=== PATIENT | female | born 1985 ===

== ENCOUNTER 2020-03-07 10:40 | Inpatient (IN) | payer BC ==
[2020-03-07] MEDS ORDERED: Methylergonovine 0.2 MG/1 ML Amp IM PRN (11:02)
[2020-03-07] MEDS ORDERED: Sodium Chloride 0.9% 10 ML SDV IV PRN (11:02)
[2020-03-07] MEDS ORDERED: Ondansetron 4 MG/2 ML SDV IVPUSH PRN (11:02)
[2020-03-07] MEDS ORDERED: Lidocaine 1% 50 ML MDV INJECT PRN (11:02)
[2020-03-07] MEDS ORDERED: Sodium Chloride 0.9% 2.5 ML Syringe FLUSH PRN (11:02)
[2020-03-07] MEDS ORDERED: Carboprost Tromethamine 250 MCG/1 ML Amp IM PRN (11:02)
[2020-03-07] MEDS ORDERED: Tranexamic Acid 1,000 MG in Sodium Chloride 0.9% 100 ML IV PRN (11:02)
[2020-03-07] MEDS ORDERED: Nalbuphine 10 MG/1 ML Vial IVPUSH PRN (11:02)
[2020-03-07] MEDS ORDERED: Butorphanol 1 MG/ML SDV IVPUSH PRN (11:02)
[2020-03-07] MEDS ORDERED: Misoprostol 200 MCG Tab PO PRN (11:02)
[2020-03-07] MEDS ORDERED: Sodium Chloride 0.9% 10 ML Syringe FLUSH PRN (11:02)
[2020-03-07] MEDS ORDERED: Water For Irrigation,Sterile 1,000 ML Container IRR PRN (11:02)
[2020-03-07] MEDS ORDERED: Oxytocin/0.9 % Sodium Chloride 30 UNIT/500 ML BAG IV SCH ×2 (11:15→14:45)
[2020-03-07] MEDS: Lactated Ringers 1,000 ML IV SCH ×2 (11:55→13:15)
[2020-03-07] MEDS ORDERED: Ropivacaine HCl/PF 100 ML ONE (12:11)
[2020-03-07] MEDS ORDERED: fentaNYL 100 MCG/2 ML SDV ONE (12:11)
--- NOTE | 2020-03-07 13:04 | PCM.LDHP ---
L&D History of Present Illness - General Date of Service: 03/07/20 Admit Problem/Dx: Patient Status Order with Admit Dx/Problem 03/07/20 11:02 Patient Status [ADT] Routine Admission Diagnosis/Problem Admission Diagnosis/Problem 03/07/20 12:58 Latisha is a 34 yo at 40.4 weeks gestation (EDD03/02/2020) that presents today with C/O contractions since DINO visit this am at 8:15. 2-3 cm in office. /-2 upon arrival. FHR Cat I. Contractions every 4 min lasting 60-80 seconds. Patient denies LOF, vaginal bleeding. Reports movement. Desires epidural analgesia. 03/07/20 13:01 Source of Information: Patient History Limitations: Reports: No Limitations - Related Data Allergies/Adverse Reactions: Allergies Allergy/AdvReac Type Severity Reaction Status Date / Time No Known Allergies Allergy Verified 04/15/18 12:42 Home Medications: Home Meds . 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: : 3 Para: 2 LMP (Approximate): Musculoskeletal History: Reports: None Neurological History: Reports: None Psychiatric History: Reports: None Endocrine/Metabolic History: Reports: None Hematologic History: Reports: None Immunologic History: Reports: None Dermatologic History: Reports: None - Infectious Disease History Infectious Disease History: Reports: None Social & Family History - Family History HEENT: Reports: Glaucoma Neurological: Reports: Parkinson's Oncologic: Reports: Bladder - Tobacco Use Smoking Status *Q: Never Smoker - Caffeine Use Caffeine Use: Reports: None - Alcohol Use Alcohol Use History: No H&P Review of Systems - Review of Systems: Review Of Systems: Comprehensive ROS is negative, except as noted in HPI. General: Reports: No Symptoms HEENT: Reports: No Symptoms Pulmonary: Reports: No Symptoms Cardiovascular: Reports: No Symptoms Gastrointestinal: Reports: No Symptoms Genitourinary: Reports: No Symptoms Musculoskeletal: Reports: No Symptoms Skin: Reports: No Symptoms Psychiatric: Reports: No Symptoms Neurological: Reports: No Symptoms Hematologic/Lymphatic: Reports: No Symptoms Immunologic: Reports: No Symptoms L&D Exam - Exam Exam: See Below - Vital Signs Vital Signs: Hemodynamically stable, afebrile. Weight: 200 lb - OB Specific Fundal Height In cm: 40 Contraction Duration (sec): 60-80 Contraction Frequency (min): 4 Contraction Intensity: Strong Movement: Active Heart Tones: Present Heart Tones per Min: 130 Heart Rate (FHR) Variability: Moderate (6-25 bmp) Presentation: Vertex - Exam General: Alert, Oriented, Cooperative, Moderate Distress (Desires epidural analgesia) HEENT: Conjunctiva Clear, Hearing Intact, Mucosa Moist & [place], PERRLA Neck: Supple, Trachea Midline Lungs: Clear to Auscultation, Normal Respiratory Effort Cardiovascular: Regular Rate, Regular Rhythm GI/Abdominal Exam: Normal Bowel Sounds, Soft, Non-Tender, No Organomegaly, No Distention Rectal Exam: Deferred Genitourinary: Normal external exam, Enlarged uterus (Gravid uterus) Back Exam: Normal Inspection, Full Range of Motion Extremities: Normal Inspection, Normal Range of Motion, Non-Tender, No Pedal Edema, Normal Capillary Refill Skin: Warm, Dry, Intact Neurological: Cranial Nerves Intact, Reflexes Equal Bilateral Psychiatric: Alert, Normal Affect, Normal Mood - Patient Data Lab Results Last 24 hrs: Laboratory Results - last 24 hr 03/07/20 Range/Units 11:40 WBC 9.16 (4.0-11.0) K/uL RBC 4.18 L (4.30-5.90) M/uL Hgb 11.2 L (12.0-16.0) g/dL Hct 35.6 L (36.0-46.0) % MCV 85.2 (80.0-98.0) fL MCH 26.8 L (27.0-32.0) pg MCHC 31.5 (31.0-37.0) g/dL RDW Std Deviation 43.9 (28.0-62.0) fl RDW Coeff of Ivana 14 (11.0-15.0) % Plt Count 284 (150-400) K/uL MPV 10.00 (7.40-12.00) fL Nucleated RBC % 0.0 /100WBC Nucleated RBCs # 0 K/uL Result Diagrams: 03/07/20 11:40 - Problem List (1) Uterine contractions SNOMED Code(s): 654631969 ICD Code: [id number] - Status: Acute Priority: High Current Visit: Yes (2) 40 weeks gestation of SNOMED Code(s): 07999871 ICD Code: Z3A.40 - 40 WEEKS GESTATION OF Status: Acute Priority: High Current Visit: Yes Problem List Initiated/Reviewed/Updated: Yes Orders Last 24hrs: Active Orders 24 hr Category Date Time Status Patient Status [ADT] Routine ADT 03/07/20 11:02 Active Heart Tones [RC] CONTINUOUS Care 03/07/20 11:02 Active Non Stress Test [RC] PER UNIT ROUTINE Care 03/07/20 11:02 Active May Shower [RC] ASDIRECTED Care 03/07/20 11:02 Active Notify Provider [RC] PRN Care 03/07/20 11:02 Active Up ad Elaine [RC] ASDIRECTED Care 03/07/20 11:02 Active Vaginal Exam [RC] PRN Care 03/07/20 11:02 Active Vital Signs [RC] PER UNIT ROUTINE Care 03/07/20 11:02 Active CORONAVIRUS COVID-19 MARIO [MOLEC] Stat Lab 03/07/20 11:25 Received RPR (SYPHILIS SERO) W/ RFLX [REF] Routine Lab 03/07/20 11:40 Received TYPE AND SCREEN [BBK] Routine Lab 03/07/20 11:40 Received Butorphanol [Stadol] Med 03/07/20 11:02 Active 1 mg IVPUSH Q1H PRN Carboprost Tromethamine [Hemabate DS] Med 03/07/20 11:02 Active 250 mcg IM ASDIRECTED PRN Lactated Ringers [Ringers, Lactated] 1,000 ml Med 03/07/20 11:15 Active IV ASDIRECTED Lidocaine 1% [Xylocaine 1%] Med 03/07/20 11:02 Active 50 ml INJECT ONETIME PRN Methylergonovine [Methergine] Med 03/07/20 11:02 Active 0.2 mg IM ASDIRECTED PRN Nalbuphine [Nubain] Med 03/07/20 11:02 Active 10 mg IVPUSH Q1H PRN Ondansetron [Zofran] Med 03/07/20 11:02 Active 4 mg IVPUSH Q6H PRN Oxytocin/0.9 % Sodium Chloride [Oxytocin 30 Unit/500 ML Med 03/07/20 11:15 Active -NS] 30 unit in 500 ml IV TITRATE Sodium Chloride 0.9% [Normal Saline] Med 03/07/20 11:02 Active 10 ml IV ASDIRECTED PRN Sodium Chloride 0.9% [Saline Flush] Med 03/07/20 11:02 Active 10 ml FLUSH ASDIRECTED PRN Sodium Chloride 0.9% [Saline Flush] Med 03/07/20 11:02 Active 2.5 ml FLUSH ASDIRECTED PRN Tranexamic Acid [Cyklokapron] 1,000 mg Med 03/07/20 11:02 Active Sodium Chloride 0.9% [Normal Saline] 100 ml IV ONETIME Water For Irrigation,Sterile [Sterile Water for Med 03/07/20 11:02 Active Irrigation] 1,000 ml IRR ASDIRECTED PRN miSOPROStoL [Cytotec] Med 03/07/20 11:02 Active 200 mcg PO ONETIME PRN Scalp Electrode [WOMSER] Per Unit Routine Oth 03/07/20 11:02 Ordered Peripheral IV Insertion Adult [OM.PC] Routine Oth 03/07/20 11:02 Ordered Resuscitation Status Routine Resus Stat 03/07/20 11:02 Ordered Medication Orders Butorphanol Tartrate (Stadol) 1 mg IVPUSH Q1H PRN PRN Reason: Pain Carboprost Tromethamine (Hemabate Ds) 250 mcg IM ASDIRECTED PRN PRN Reason: Post Hemorrhage Oxytocin/Sodium Chloride (Oxytocin 30 Unit/500 Ml-Ns) 30 unit in 500 mls @ 999 mls/hr IV TITRATE [facility] Tranexamic Acid 1,000 mg/ (Sodium Chloride) 110 mls @ 660 mls/hr IV ONETIME PRN PRN Reason: Bleeding Lactated Ringer's (Ringers, Lactated) 1,000 mls @ 150 mls/hr IV ASDIRECTED PAULINO Last Admin: 03/07/20 11:55 Dose: 150 mls/hr Documented by: MINI Lidocaine HCl (Xylocaine 1%) 50 ml INJECT ONETIME PRN PRN Reason: Laceration repair Methylergonovine Maleate (Methergine) 0.2 mg IM ASDIRECTED PRN PRN Reason: Post Hemorrhage Misoprostol (Cytotec) 200 mcg PO ONETIME PRN PRN Reason: Post Hemorrhage Nalbuphine HCl (Nubain) 10 mg IVPUSH Q1H PRN PRN Reason: Pain (severe 7-10) Ondansetron HCl (Zofran) 4 mg IVPUSH Q6H PRN PRN Reason: Nausea/Vomiting Sodium Chloride (Saline Flush) 10 ml FLUSH ASDIRECTED PRN PRN Reason: Keep Vein Open Sodium Chloride (Saline Flush) 2.5 ml FLUSH ASDIRECTED PRN PRN Reason: Keep Vein Open Sodium Chloride (Normal Saline) 10 ml IV ASDIRECTED PRN PRN Reason: IV Use Sterile Water (Sterile Water For Irrigation) 1,000 ml IRR ASDIRECTED PRN PRN Reason: delivery Assessment/Plan Comment:: Admit for observation to L&D in anticipation of . Desires epidural and may receive at this time. COVID testing pending. Declines AROM at this time. See new orders. Dr. Rene notified and agreeable with POC.
--- NOTE | 2020-03-07 13:12 | PCM.PREANE ---
Preanesthetic Assessment - Anesthesia/Transfusion/Family Hx Anesthesia History: Prior Anesthesia Without Reaction Family History of Anesthesia Reaction: No - Physical Assessment NPO Status Date: 03/07/20 NPO Status Time: 09: Height: 1.68 m Weight: 90.718 kg ASA Class: 2 - Lab Values: Laboratory Last Values WBC 9.16 K/uL (4.0-11.0) 03/07/20 11:40 RBC 4.18 M/uL (4.30-5.90) L 03/07/20 11:40 Hgb 11.2 g/dL (12.0-16.0) L 03/07/20 11:40 Hct 35.6 % (36.0-46.0) L 03/07/20 11:40 MCV 85.2 fL (80.0-98.0) 03/07/20 11:40 MCH 26.8 pg (27.0-32.0) L 03/07/20 11:40 MCHC 31.5 g/dL (31.0-37.0) 03/07/20 11:40 RDW Std Deviation 43.9 fl (28.0-62.0) 03/07/20 11:40 RDW Coeff of Ivana 14 % (11.0-15.0) 03/07/20 11:40 Plt Count 284 K/uL (150-400) 03/07/20 11:40 MPV 10.00 fL (7.40-12.00) 03/07/20 11:40 Nucleated RBC % 0.0 /100WBC 03/07/20 11:40 Nucleated RBCs # 0 K/uL 03/07/20 11:40 - Allergies Allergies/Adverse Reactions: Allergies Allergy/AdvReac Type Severity Reaction Status Date / Time No Known Allergies Allergy Verified 04/15/18 12:42 - Acknowledgements Anesthesia Type Planned: Epidural Pt an Appropriate Candidate for the Planned Anesthesia: Yes Alternatives and Risks of Anesthesia Discussed w Pt/Guardian: Yes Pt/Guardian Understands and Agrees with Anesthesia Plan: Yes PreAnesthesia Questionnaire - Past Health History Medical/Surgical History: Denies Medical/Surgical History HEENT History: Reports: None Cardiovascular History: Reports: None Respiratory History: Reports: None Gastrointestinal History: Reports: None Genitourinary History: Reports: UTI, Recurrent 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 [No Known Home Meds] 04/15/18 [History] - CURRENT (IN HOUSE) MEDS Current Meds: Current Medications Butorphanol Tartrate (Stadol) 1 mg IVPUSH Q1H PRN PRN Reason: Pain Carboprost Tromethamine (Hemabate Ds) 250 mcg IM ASDIRECTED PRN PRN Reason: Post Hemorrhage Oxytocin/Sodium Chloride (Oxytocin 30 Unit/500 Ml-Ns) 30 unit in 500 mls @ 999 mls/hr IV TITRATE COUNTS INCLUDE 234 BEDS AT THE [facility] Tranexamic Acid 1,000 mg/ (Sodium Chloride) 110 mls @ 660 mls/hr IV ONETIME PRN PRN Reason: Bleeding Lactated Ringer's (Ringers, Lactated) 1,000 mls @ 150 mls/hr IV ASDIRECTED COUNTS INCLUDE 234 BEDS AT THE [facility] Last Admin: 03/07/20 11:55 Dose: 150 mls/hr Documented by: Lidocaine HCl (Xylocaine 1%) 50 ml INJECT ONETIME PRN PRN Reason: Laceration repair Methylergonovine Maleate (Methergine) 0.2 mg IM ASDIRECTED PRN PRN Reason: Post Hemorrhage Misoprostol (Cytotec) 200 mcg PO ONETIME PRN PRN Reason: Post Hemorrhage Nalbuphine HCl (Nubain) 10 mg IVPUSH Q1H PRN PRN Reason: Pain (severe 7-10) Ondansetron HCl (Zofran) 4 mg IVPUSH Q6H PRN PRN Reason: Nausea/Vomiting Sodium Chloride (Saline Flush) 10 ml FLUSH ASDIRECTED PRN PRN Reason: Keep Vein Open Sodium Chloride (Saline Flush) 2.5 ml FLUSH ASDIRECTED PRN PRN Reason: Keep Vein Open Sodium Chloride (Normal Saline) 10 ml IV ASDIRECTED PRN PRN Reason: IV Use Sterile Water (Sterile Water For Irrigation) 1,000 ml IRR ASDIRECTED PRN PRN Reason: delivery Discontinued Medications Fentanyl (Sublimaze) Confirm Administered Dose 100 mcg .ROUTE .STK-MED ONE Stop: 03/07/20 12:12 Ropivacaine (Naropin 0.2%) Confirm Administered Dose 100 mls @ as directed .ROUTE .ST-MED ONE Stop: 03/07/20 12:12
--- NOTE | 2020-03-07 13:17 | PCM.PRNOTE ---
- Free Text/Narrative Note: Anes NOte Patietn requests epidural for L&D. Sitting position, level L3-L4 midline appraoch. Sterile technique. Chlora[prep scrub to lumbar area. Sterile fenestrated drape applied. Epidural space easily achieved single attempt with ease using JOHN tecvhnique. JOHN at 3 cm. Cath threaded 5 cm with ease. Cath secured a t skin at 10 cm usig sterile clear adhesive dressing. 1254 Test 3 cc 1.5% lido with epi negative. 1257 load 10 cc 0.2% ropivicaine with 1 mcg cc fentanyl in slow divided doses. Pump started with 90 cc same solution, rate is 8 cc hr with 6 cc q 20 min prn bolus. Tole well Time with patient [phone] Everett Roa NET APPLICATION ARCHITECT
[2020-03-07] MEDS ORDERED: Acetaminophen 500 MG Tab PO PRN ×2 (16:47)
[2020-03-07] MEDS ORDERED: Ibuprofen 400 MG Tab PO PRN (16:47)
[2020-03-07] MEDS ORDERED: Benzocaine/Menthol 20%-0.5% Spray 78 GM Cannister TOP PRN (16:47)
[2020-03-07] MEDS ORDERED: oxyCODONE 5 MG Tab PO PRN (16:47)
[2020-03-07] MEDS ORDERED: Lanolin 100% Cream 7 GM Tube TOP PRN (16:47)
[2020-03-07] MEDS ORDERED: Docusate Sodium 100 MG Cap PO PRN (16:47)
[2020-03-07] MEDS ORDERED: Bisacodyl 10 MG Supp RECTAL PRN (16:47)
[2020-03-07] MEDS ORDERED: Witch Hazel Medicated Pads 40/Jar TOP PRN (16:47)
--- NOTE | 2020-03-07 16:54 | PCM.DEL ---
L & D Note - General Info Date of Service: 03/07/20 - Delivery Note Labor: Spontaneous, Augmented by Oxytocin Delivery Outcome: Livebirth Infant Delivery Method: Spontaneous Vaginal Delivery-Single Presentation: Vertex Nuchal Cord: None Anesthesia Type: Epidural Amniotic Fluid Description: Terminal Meconium Episiotomy Type: None Laceration: 1st Degree Suture type: Vicryl Suture size: 3-0 Placenta: Intact, Spontaneous Cord: 3 Vessels Estimated Blood Loss: 300 [place]: Suctioned, Bulb Syringe, Stimulated Score 1 min: 6 Score 5 min: 9 Second Stage Interventions: Reports: Second Nurse Assessed Progress of Descent, Second Nurse Reviewed Contraction Pattern, Second Nurse Reviewed Heart Tones, Encouragement Given, Pushing Effectively, Pushing, Pulls Own Legs Back Delivery Comments (Free Text/Narrative):: viable female; epidural for pain relief; head delivered with good pushing, shoulders and body followed easily after; terminal meconium; no nuchal; baby to mom's abdomen [id number] for assessment; cord doubly clamped, cut by research psychologist at approximately one minute; baby to warmer for further assessment; APGARs 6/9; weight: 8 lb 12 oz; placenta delivered grossly intact, altamirano, 3VC, EBL 300 mL; first degree perineal laceration repaired with 3-0 vicryl; pitocin to IVF; mom and baby left in stable condition with nurse at bedside for assessment - General Info Date of Service: 03/07/20 Admission Dx/Problem (Free Text): Patient Status Order with Admit Dx/Problem 03/07/20 11:02 Patient Status [ADT] Routine Admission Diagnosis/Problem Admission Diagnosis/Problem 03/07/20 12:58 Latisha is a 34 yo at 40.4 weeks gestation (EDD03/02/2020) that presents today with C/O contractions since DINO visit this am at 8:15. 2-3 cm in office. 4/70/-2 upon arrival. FHR Cat I. Contractions every 4 min lasting 60-80 seconds. Patient denies LOF, vaginal bleeding. Reports movement. Desires epidural analgesia. 03/07/20 13:01 Functional Status: Reports: Pain Controlled - Review of Systems General: Reports: No Symptoms HEENT: Reports: No Symptoms Pulmonary: Reports: No Symptoms Cardiovascular: Reports: No Symptoms Gastrointestinal: Reports: No Symptoms Genitourinary: Reports: No Symptoms Musculoskeletal: Reports: No Symptoms Skin: Reports: No Symptoms Neurological: Reports: No Symptoms Psychiatric: Reports: No Symptoms - Patient Data Weight - Most Recent: 200 lb Lab Results Last 24 Hours: Laboratory Results - last 24 hr 03/07/20 03/07/20 03/07/20 Range/Units 11:25 11:40 11:40 WBC 9.16 (4.0-11.0) K/uL RBC 4.18 L (4.30-5.90) M/uL Hgb 11.2 L (12.0-16.0) g/dL Hct 35.6 L (36.0-46.0) % MCV 85.2 (80.0-98.0) fL MCH 26.8 L (27.0-32.0) pg MCHC 31.5 (31.0-37.0) g/dL RDW Std Deviation 43.9 (28.0-62.0) fl RDW Coeff of Ivana 14 (11.0-15.0) % Plt Count 284 (150-400) K/uL MPV 10.00 (7.40-12.00) fL Nucleated RBC % 0.0 /100WBC Nucleated RBCs # 0 K/uL SARS-CoV-2 RNA (MARIO) NEGATIVE (NEGATIVE) Blood Type O POSITIVE Antibody Screen NEGATIVE Med Orders - Current: Current Medications Discontinued Medications Butorphanol Tartrate (Stadol) 1 mg IVPUSH Q1H PRN PRN Reason: Pain Carboprost Tromethamine (Hemabate Ds) 250 mcg IM ASDIRECTED PRN PRN Reason: Post Hemorrhage Fentanyl (Sublimaze) Confirm Administered Dose 100 mcg .ROUTE .STK-MED ONE Stop: 03/07/20 12:12 Oxytocin/Sodium Chloride (Oxytocin 30 Unit/500 Ml-Ns) 30 unit in 500 mls @ 999 mls/hr IV TITRATE PAULNIO Tranexamic Acid 1,000 mg/ (Sodium Chloride) 110 mls @ 660 mls/hr IV ONETIME PRN PRN Reason: Bleeding Lactated Ringer's (Ringers, Lactated) 1,000 mls @ 150 mls/hr IV ASDIRECTED PAULINO Last Admin: 03/07/20 13:15 Dose: 150 mls/hr Documented by: Ropivacaine (Naropin 0.2%) Confirm Administered Dose 100 mls @ as directed .ROUTE .STK-MED ONE Stop: 03/07/20 12:12 Oxytocin/Sodium Chloride (Oxytocin 30 Unit/500 Ml-Ns) 30 unit in 500 mls @ 2 mls/hr IV TITRATE PAULINO; Protocol Last Admin: 03/07/20 14:57 Dose: 2 munits/min, 2 mls/hr Documented by: Lidocaine HCl (Xylocaine 1%) 50 ml INJECT ONETIME PRN PRN Reason: Laceration repair Methylergonovine Maleate (Methergine) 0.2 mg IM ASDIRECTED PRN PRN Reason: Post Hemorrhage Misoprostol (Cytotec) 200 mcg PO ONETIME PRN PRN Reason: Post Hemorrhage Nalbuphine HCl (Nubain) 10 mg IVPUSH Q1H PRN PRN Reason: Pain (severe 7-10) Ondansetron HCl (Zofran) 4 mg IVPUSH Q6H PRN PRN Reason: Nausea/Vomiting Sodium Chloride (Saline Flush) 10 ml FLUSH ASDIRECTED PRN PRN Reason: Keep Vein Open Sodium Chloride (Saline Flush) 2.5 ml FLUSH ASDIRECTED PRN PRN Reason: Keep Vein Open Sodium Chloride (Normal Saline) 10 ml IV ASDIRECTED PRN PRN Reason: IV Use Sterile Water (Sterile Water For Irrigation) 1,000 ml IRR ASDIRECTED PRN PRN Reason: delivery - Exam General: Alert, Oriented, Cooperative, No Acute Distress Lungs: Normal Respiratory Effort Cardiovascular: Regular Rate, Regular Rhythm GI/Abdominal Exam: Soft, Non-Tender (Female) Exam: Normal External Exam Back Exam: Normal Inspection Extremities: Normal Inspection, Non-Tender, Normal Capillary Refill Skin: Warm, Dry, Intact Wound/Incisions: Healing Well Neurological: No New Focal Deficit, Normal Speech Psy/Mental Status: Alert, Normal Affect, Normal Mood - Problem List & Annotations (1) (spontaneous vaginal delivery) SNOMED Code(s): 781748622 Code(s): O80 - ENCOUNTER FOR FULL-TERM UNCOMPLICATED DELIVERY Status: Acute Priority: High Current Visit: Yes - Problem List Review Problem List Initiated/Reviewed/Updated: Yes - My Orders Last 24 Hours: My Active Orders 03/07/20 16:47 Acetaminophen [Tylenol Extra Strength] 1,000 mg PO Q4H PRN Acetaminophen [Tylenol Extra Strength] 500 mg PO Q4H PRN Benzocaine/Menthol [Dermoplast Pain Relief 20%-0.5% [place]] 78 gm TOP ASDIRECTED PRN Docusate Sodium [Colace] 100 mg PO BID PRN Ibuprofen [Motrin] 400 mg PO Q4H PRN Ibuprofen [Motrin] 800 mg PO Q6H PRN Lanolin [Lansinoh HPA] See Dose Instructions TOP ASDIRECTED PRN bisacodyL [Dulcolax] 10 mg RECTAL ONETIME PRN oxyCODONE 5 mg PO Q2H PRN witch Joe [Tucks] 1 pad TOP ASDIRECTED PRN Resuscitation Status Routine 03/07/20 16:48 Patient Status [ADT] Routine May Shower [RC] ASDIRECTED Up ad Elaine [RC] ASDIRECTED Vital Signs [RC] PER UNIT ROUTINE Assess Lochia [WOMSER] Per Unit Routine Assess Uterine Involution [WOMSER] Per Unit Routine Peripheral IV Discontinue [OM.PC] Routine 03/08/20 05:11 HEMOGLOBIN/HEMATOCRIT,HH [HEME] Timed - Plan Plan:: Admit for observation to L&D in anticipation of . Desires epidural and may receive at this time. COVID testing pending. Declines AROM at this time. See new orders. Dr. Rene notified and agreeable with POC. Delivery A: viable female; terminal meconium; baby to mom's abdomen [id number] for assessment; cord doubly clamped, cut by research psychologist at approximately one minute; baby to warmer for further assessment; APGARs 6/9; weight: 8 lb 12 oz; placenta delivered grossly intact, altamirano, 3VC, EBL 300 mL; first degree perineal laceration repaired with 3-0 vicryl; pitocin to IVF; mom and baby left in stable condition with nurse at bedside for assessment P: Routine plan of care; Dr. Rene updated.
[2020-03-07] MEDS ORDERED: Ibuprofen 800 MG Tab ONE (17:26)
[2020-03-07] MEDS: Ibuprofen 800 MG Tab PO PRN (17:29)
--- NOTE | 2020-03-08 08:10 | PCM48HPAN ---
Post Anesthesia Note - EVALUATION WITHIN 48HRS OF ANESTHETIC Vital Signs in Normal Range: Yes Patient Participated in Evaluation: Yes Respiratory Function Stable: Yes Airway Patent: Yes Cardiovascular Function Stable: Yes Hydration Status Stable: Yes Pain Control Satisfactory: Yes (Pain 2/10 at rest, well controlled per pt.) Nausea and Vomiting Control Satisfactory: Yes (Taking PO well, denies nausea) Mental Status Recovered: Yes Vital Signs: Last Vital Signs Temp 37.3 C 03/08/20 05:00 Pulse 75 03/08/20 05:00 Resp 16 03/08/20 05:00 BP 108/56 L 03/08/20 05:00 Pulse Ox 97 03/08/20 05:00 - COMMENTS/OBSERVATIONS Free Text/Narrative:: Ambulating will, full return of strength and sensation to BLE per patient.
[2020-03-08] MEDS: Ibuprofen 800 MG Tab PO PRN ×2 (08:14→18:59)
--- NOTE | 2020-03-08 08:40 | PCM.DCSUM1 ---
Discharge Summary - Hospital Course Free Text/Narrative:: Discharge home with baby. Follow up in the clinic in 6 weeks for routine visit; sooner, if needed. Diagnosis: Stroke: No Modified Arnaud Scale: No Symptoms at All Modified Arnaud Scale Score: 0 - Discharge Data Discharge Date: 03/08/20 Discharge Disposition: Home, Self-Care 01 Condition: Good - Referral to Home Health Primary Care Physician: PCP None - Discharge Diagnosis/Problem(s) (1) (spontaneous vaginal delivery) SNOMED Code(s): 228716715 ICD Code: O80 - ENCOUNTER FOR FULL-TERM UNCOMPLICATED DELIVERY Status: Acute Priority: High Current Visit: Yes - Patient Instructions Diet: Regular Diet as Tolerated, Drink 8-10+ Glasses/Day Activity: As Tolerated, No Strenuous Activities, Rest and Relax Today Driving: May Drive Today Showering/Bathing: May Shower Wound/Incision Care: Keep Operative Site/Wound Site Clean and Dry Notify Provider of: Fever, Increased Pain, Swelling and Redness, Drainage, Nause a and/or Vomiting - Discharge Plan *PRESCRIPTION DRUG MONITORING PROGRAM REVIEWED*: Not Applicable *COPY OF PRESCRIPTION DRUG MONITORING REPORT IN PATIENT JOSSELINE: Not Applicable Prescriptions/Med Rec: Ibuprofen [Motrin] 800 mg PO Q6H PRN #90 tablet PRN Reason: Pain Home Medications: Home Meds Ibuprofen [Motrin] 800 mg PO Q6H PRN #90 tablet 03/08/20 [Rx] Oxygen Therapy Mode: Room Air - Discharge Summary/Plan Comment DC Time >30 min.: Yes - General Info Date of Service: 03/08/20 Admission Dx/Problem (Free Text: Patient Status Order with Admit Dx/Problem 03/07/20 11:02 Patient Status [ADT] Routine Admission Diagnosis/Problem Admission Diagnosis/Problem 03/07/20 12:58 Latisha is a 34 yo at 40.4 weeks gestation (EDD03/02/2019) that presents today with C/O contractions since DINO visit this am at 8:15. 2-3 cm in office. 70/-2 upon arrival. FHR Cat I. Contractions every 4 min lasting 60-80 seconds. Patient denies LOF, vaginal bleeding. Reports movement. Desires epidural analgesia. 03/07/20 13:01 Functional Status: Reports: Pain Controlled, Tolerating Diet, Ambulating, Urinating - Review of Systems General: Reports: No Symptoms HEENT: Reports: No Symptoms Pulmonary: Reports: No Symptoms Cardiovascular: Reports: No Symptoms Gastrointestinal: Reports: No Symptoms Genitourinary: Reports: No Symptoms Musculoskeletal: Reports: No Symptoms Skin: Reports: No Symptoms Neurological: Reports: No Symptoms Psychiatric: Reports: No Symptoms - Patient Data Vitals - Most Recent: Last Vital Signs Temp 98.0 F 03/08/20 08:30 Pulse 75 03/08/20 05:00 Resp 15 03/08/20 08:30 BP 118/66 03/08/20 08:30 Pulse Ox 98 03/08/20 08:30 Weight - Most Recent: 200 lb Lab Results - Last 24 hrs: Laboratory Results - last 24 hr 03/07/20 03/07/20 03/07/20 Range/Units 11:25 11:40 11:40 WBC 9.16 (4.0-11.0) K/uL RBC 4.18 L (4.30-5.90) M/uL Hgb 11.2 L (12.0-16.0) g/dL Hct 35.6 L (36.0-46.0) % MCV 85.2 (80.0-98.0) fL MCH 26.8 L (27.0-32.0) pg MCHC 31.5 (31.0-37.0) g/dL RDW Std Deviation 43.9 (28.0-62.0) fl RDW Coeff of Ivana 14 (11.0-15.0) % Plt Count 284 (150-400) K/uL MPV 10.00 (7.40-12.00) fL Nucleated RBC % 0.0 /100WBC Nucleated RBCs # 0 K/uL SARS-CoV-2 RNA (MARIO) NEGATIVE (NEGATIVE) Blood Type O POSITIVE Antibody Screen NEGATIVE 03/08/20 Range/Units 06:32 WBC (4.0-11.0) K/uL RBC (4.30-5.90) M/uL Hgb 10.1 L (12.0-16.0) g/dL Hct 31.8 L (36.0-46.0) % MCV (80.0-98.0) fL MCH (27.0-32.0) pg MCHC (31.0-37.0) g/dL RDW Std Deviation (28.0-62.0) fl RDW Coeff of Ivana (11.0-15.0) % Plt Count (150-400) K/uL MPV (7.40-12.00) fL Nucleated RBC % /100WBC Nucleated RBCs # K/uL SARS-CoV-2 RNA (MARIO) (NEGATIVE) Blood Type Antibody Screen Med Orders - Current: Current Medications Acetaminophen (Tylenol Extra Strength) 500 mg PO Q4H PRN PRN Reason: Pain Acetaminophen (Tylenol Extra Strength) 1,000 mg PO Q4H PRN PRN Reason: Pain Last Admin: 03/08/20 03:06 Dose: 1,000 mg Documented by: Benzocaine/Menthol (Dermoplast Pain Relief 20%-0.5% [place]) 78 gm TOP ASDIRECTED PRN PRN Reason: Perineal Comfort Measure Bisacodyl (Dulcolax) 10 mg RECTAL ONETIME PRN PRN Reason: Constipation Docusate Sodium (Colace) 100 mg PO BID PRN PRN Reason: Constipation Emollient Ointment (Lansinoh Hpa) 0 gm TOP ASDIRECTED PRN PRN Reason: Sore Nipples Ibuprofen (Motrin) 400 mg PO Q4H PRN PRN Reason: Pain Ibuprofen (Motrin) 800 mg PO Q6H PRN PRN Reason: Pain Last Admin: 03/08/20 08:14 Dose: 800 mg Documented by: Oxycodone HCl (Oxycodone) 5 mg PO Q2H PRN PRN Reason: Pain Witch Susie (Tucks) 1 pad TOP ASDIRECTED PRN PRN Reason: comfort care Discontinued Medications Butorphanol Tartrate (Stadol) 1 mg IVPUSH Q1H PRN PRN Reason: Pain Carboprost Tromethamine (Hemabate Ds) 250 mcg IM ASDIRECTED PRN PRN Reason: Post Hemorrhage Fentanyl (Sublimaze) Confirm Administered Dose 100 mcg .ROUTE .[facility] ONE Stop: 03/07/20 12:12 Oxytocin/Sodium Chloride (Oxytocin 30 Unit/500 Ml-Ns) 30 unit in 500 mls @ 999 mls/hr IV TITRATE PAULINO Tranexamic Acid 1,000 mg/ (Sodium Chloride) 110 mls @ 660 mls/hr IV ONETIME PRN PRN Reason: Bleeding Lactated Ringer's (Ringers, Lactated) 1,000 mls @ 150 mls/hr IV ASDIRECTED [facility] Last Admin: 03/07/20 13:15 Dose: 150 mls/hr Documented by: Ropivacaine (Naropin 0.2%) Confirm Administered Dose 100 mls @ as directed .ROUTE .[employer]-[facility] ONE Stop: 03/07/20 12:12 Oxytocin/Sodium Chloride (Oxytocin 30 Unit/500 Ml-Ns) 30 unit in 500 mls @ 2 mls/hr IV TITRATE PAULINO; Protocol Last Infusion: 03/07/20 16:30 Dose: 999 munits/min, 999 mls/hr Documented by: Ibuprofen (Motrin) Confirm Administered Dose 800 mg .ROUTE .[employer] ONE Stop: 03/07/20 17:27 Lidocaine HCl (Xylocaine 1%) 50 ml INJECT ONETIME PRN PRN Reason: Laceration repair Methylergonovine Maleate (Methergine) 0.2 mg IM ASDIRECTED PRN PRN Reason: Post Hemorrhage Misoprostol (Cytotec) 200 mcg PO ONETIME PRN PRN Reason: Post Hemorrhage Nalbuphine HCl (Nubain) 10 mg IVPUSH Q1H PRN PRN Reason: Pain (severe 7-10) Ondansetron HCl (Zofran) 4 mg IVPUSH Q6H PRN PRN Reason: Nausea/Vomiting Sodium Chloride (Saline Flush) 10 ml FLUSH ASDIRECTED PRN PRN Reason: Keep Vein Open Sodium Chloride (Saline Flush) 2.5 ml FLUSH ASDIRECTED PRN PRN Reason: Keep Vein Open Sodium Chloride (Normal Saline) 10 ml IV ASDIRECTED PRN PRN Reason: IV Use Sterile Water (Sterile Water For Irrigation) 1,000 ml IRR ASDIRECTED PRN PRN Reason: delivery - Exam General: Reports: Alert, Oriented, Cooperative, No Acute Distress Lungs: Reports: Normal Respiratory Effort Cardiovascular: Reports: Regular Rate, Regular Rhythm GI/Abdominal Exam: Soft, Non-Tender (Female) Exam: Deferred Rectal (Female) Exam: Deferred Back Exam: Reports: Normal Inspection, Full Range of Motion Extremities: Normal Inspection, Normal Range of Motion, Non-Tender, Normal Capillary Refill Skin: Reports: Warm, Dry, Intact Wound/Incisions: Reports: Healing Well Neurological: Reports: No New Focal Deficit, Normal Speech, Normal Tone, Strength Equal Bilateral, Sensation Intact Psy/Mental Status: Reports: Alert, Normal Affect, Normal Mood
--- NOTE | 2020-03-09 07:43 | PCM.DCSUM1 ---
Discharge Summary - Hospital Course Free Text/Narrative:: Discharge home. Follow up in the clinic in 6 weeks for routine visit; sooner, if needed. Diagnosis: Stroke: No Modified Colleton Scale: No Symptoms at All Modified Colleton Scale Score: 0 - Discharge Data Discharge Date: 03/09/20 Discharge Disposition: Home, Self-Care 01 Condition: Good - Referral to Home Health Primary Care Physician: PCP None - Discharge Diagnosis/Problem(s) (1) (spontaneous vaginal delivery) SNOMED Code(s): 522057679 ICD Code: O80 - ENCOUNTER FOR FULL-TERM UNCOMPLICATED DELIVERY Status: Acute Priority: High Current Visit: Yes - Patient Instructions Diet: Regular Diet as Tolerated, Drink 8-10+ Glasses/Day Activity: As Tolerated, No Strenuous Activities, Rest and Relax Today Driving: May Drive Today Showering/Bathing: May Shower Wound/Incision Care: Keep Operative Site/Wound Site Clean and Dry Notify Provider of: Fever, Increased Pain, Swelling and Redness, Drainage, Nausea and/or Vomiting - Discharge Plan *PRESCRIPTION DRUG MONITORING PROGRAM REVIEWED*: Not Applicable *COPY OF PRESCRIPTION DRUG MONITORING REPORT IN PATIENT JOSSELINE: Not Applicable Prescriptions/Med Rec: Ibuprofen [Motrin] 800 mg PO Q6H PRN #90 tablet PRN Reason: Pain Home Medications: Home Meds Ibuprofen [Motrin] 800 mg PO Q6H PRN #90 tablet 03/08/20 [Rx] Oxygen Therapy Mode: Room Air Referrals: [facility] [Outside] Vianey Goyal, JAMELM, W[employer]ER [Mid-] - 04/19/20 3:00 pm - Discharge Summary/Plan Comment DC Time >30 min.: Yes - General Info Date of Service: 03/09/20 Admission Dx/Problem (Free Text: Patient Status Order with Admit Dx/Problem 03/07/20 11:02 Patient Status [ADT] Routine Admission Diagnosis/Problem Admission Diagnosis/Problem 03/07/20 12:58 Latisha is a 34 yo at 40.4 weeks gestation (EDD03/02/2019) that presents today with C/O contractions since DINO visit this am at 8:15. 2-3 cm in office. 4/70/-2 upon arrival. FHR Cat I. Contractions every 4 min lasting 60-80 seconds. Patient denies LOF, vaginal bleeding. Reports movement. Desires epidural analgesia. 03/07/20 13:01 Functional Status: Reports: Pain Controlled, Tolerating Diet, Ambulating, Urinating - Review of Systems General: Reports: No Symptoms HEENT: Reports: No Symptoms Pulmonary: Reports: No Symptoms Cardiovascular: Reports: No Symptoms Gastrointestinal: Reports: No Symptoms Genitourinary: Reports: No Symptoms Musculoskeletal: Reports: No Symptoms Skin: Reports: No Symptoms Neurological: Reports: No Symptoms Psychiatric: Reports: No Symptoms - Patient Data Vitals - Most Recent: Last Vital Signs Temp 98.6 F 03/09/20 03:36 Pulse 69 03/09/20 03:36 Resp 16 03/09/20 03:36 BP 112/66 03/09/20 03:36 Pulse Ox 100 03/09/20 03:36 Weight - Most Recent: 200 lb Med Orders - Current: Current Medications Acetaminophen (Tylenol Extra Strength) 500 mg PO Q4H PRN PRN Reason: Pain Acetaminophen (Tylenol Extra Strength) 1,000 mg PO Q4H PRN PRN Reason: Pain Last Admin: 03/08/20 03:06 Dose: 1,000 mg Documented by: Benzocaine/Menthol (Dermoplast Pain Relief 20%-0.5% [place]) 78 gm TOP ASDIRECTED PRN PRN Reason: Perineal Comfort Measure Last Admin: 03/08/20 19:52 Dose: 1 can Documented by: Bisacodyl (Dulcolax) 10 mg RECTAL ONETIME PRN PRN Reason: Constipation Docusate Sodium (Colace) 100 mg PO BID PRN PRN Reason: Constipation Emollient Ointment (Lansinoh Hpa) 0 gm TOP ASDIRECTED PRN PRN Reason: Sore Nipples Ibuprofen (Motrin) 400 mg PO Q4H PRN PRN Reason: Pain Ibuprofen (Motrin) 800 mg PO Q6H PRN PRN Reason: Pain Last Admin: 03/08/20 18:59 Dose: 800 mg Documented by: Oxycodone HCl (Oxycodone) 5 mg PO Q2H PRN PRN Reason: Pain Witch Susie (Tucks) 1 pad TOP ASDIRECTED PRN PRN Reason: comfort care Last Admin: 03/08/20 19:51 Dose: 1 tub Documented by: Discontinued Medications Butorphanol Tartrate (Stadol) 1 mg IVPUSH Q1H PRN PRN Reason: Pain Carboprost Tromethamine (Hemabate Ds) 250 mcg IM ASDIRECTED PRN PRN Reason: Post Hemorrhage Fentanyl (Sublimaze) Confirm Administered Dose 100 mcg .ROUTE .[employer] ONE Stop: 03/07/20 12:12 Last Admin: 03/08/20 19:26 Dose: Not Given Documented by: Oxytocin/Sodium Chloride (Oxytocin 30 Unit/500 Ml-Ns) 30 unit in 500 mls @ 999 mls/hr IV TITRATE PAULINO Tranexamic Acid 1,000 mg/ (Sodium Chloride) 110 mls @ 660 mls/hr IV ONETIME PRN PRN Reason: Bleeding Lactated Ringer's (Ringers, Lactated) 1,000 mls @ 150 mls/hr IV ASDIRECTED PAULINO Last Admin: 03/07/20 13:15 Dose: 150 mls/hr Documented by: Ropivacaine (Naropin 0.2%) Confirm Administered Dose 100 mls @ as [facility] ONE Stop: 03/07/20 12:12 Oxytocin/Sodium Chloride (Oxytocin 30 Unit/500 Ml-Ns) 30 unit in 500 mls @ 2 mls/hr IV TITRATE PAULINO; Protocol Last Infusion: 03/07/20 16:30 Dose: 999 munits/min, 999 mls/hr Documented by: Ibuprofen (Motrin) Confirm Administered Dose 800 mg .ROUTE .[employer] ONE Stop: 03/07/20 17:27 Last Admin: 03/08/20 19:26 Dose: Not Given Documented by: Lidocaine HCl (Xylocaine 1%) 50 ml INJECT ONETIME PRN PRN Reason: Laceration repair Methylergonovine Maleate (Methergine) 0.2 mg IM ASDIRECTED PRN PRN Reason: Post Hemorrhage Misoprostol (Cytotec) 200 mcg PO ONETIME PRN PRN Reason: Post Hemorrhage Nalbuphine HCl (Nubain) 10 mg IVPUSH Q1H PRN PRN Reason: Pain (severe 7-10) Ondansetron HCl (Zofran) 4 mg IVPUSH Q6H PRN PRN Reason: Nausea/Vomiting Sodium Chloride (Saline Flush) 10 ml FLUSH ASDIRECTED PRN PRN Reason: Keep Vein Open Sodium Chloride (Saline Flush) 2.5 ml FLUSH ASDIRECTED PRN PRN Reason: Keep Vein Open Sodium Chloride (Normal Saline) 10 ml IV ASDIRECTED PRN PRN Reason: IV Use Sterile Water (Sterile Water For Irrigation) 1,000 ml IRR ASDIRECTED PRN PRN Reason: delivery - Exam General: Reports: Alert, Oriented, Cooperative, No Acute Distress Lungs: Reports: Normal Respiratory Effort Cardiovascular: Reports: Regular Rate, Regular Rhythm GI/Abdominal Exam: Soft, Non-Tender (Female) Exam: Deferred Rectal (Female) Exam: Deferred Back Exam: Reports: Normal Inspection, Full Range of Motion Extremities: Normal Inspection, Normal Range of Motion, Non-Tender, Normal Capillary Refill Skin: Reports: Warm, Dry, Intact Neurological: Reports: No New Focal Deficit, Normal Speech, Normal Tone, Strength Equal Bilateral, Sensation Intact Psy/Mental Status: Reports: Alert, Normal Affect, Normal Mood
[2020-03-09] MEDS: Ibuprofen 800 MG Tab PO PRN (14:47)
[2020-03-09 16:28] VITALS: BP 114/65; PULSE 65
== END 2020-03-09 19:45 | disposition home or self-care (01) | DRG 560 ==
LOC: MW.OBCHECK 10:40 → MW.OB 11:02 → OBSVTOIN 16:29 → MW.OB 16:29
PROVIDERS: ADMIT Obstetrics & Gynecology; ATTEND Obstetrics & Gynecology
PROC: 10E0XZZ Delivery of Products of Conception, External Approach (ICD-10-PCS; principal; 2020-03-07)
PROC: 10907ZC Drainage of Amniotic Fluid, Therapeutic from Products of Conception, Via Natural or Artificial Opening (ICD-10-PCS; 2020-03-07)
PROC: 0HQ9XZZ Repair Perineum Skin, External Approach (ICD-10-PCS; 2020-03-07)
PROC: 3E0R3BZ Introduction of Anesthetic Agent into Spinal Canal, Percutaneous Approach (ICD-10-PCS; 2020-03-07)
PROC: 00HU33Z Insertion of Infusion Device into Spinal Canal, Percutaneous Approach (ICD-10-PCS; 2020-03-07)
DX: O77.0 Labor and delivery complicated by meconium in amniotic fluid (principal); Z3A.40 40 weeks gestation of pregnancy; Z37.0 Single live birth; O70.0 First degree perineal laceration during delivery; Z20.828 Contact with and (suspected) exposure to other viral communicable diseases
CPT/HCPCS: 36415; 51702; 59025; 59409; 85014; 85018; 85027; 86592; 86850; 86900; 86901; A9270-GY; J2590; J7120; U0002